=== PATIENT | female | born 1930 | race Two or more races ===

== ENCOUNTER → 2016-09-24 | Outpatient (CLI) | payer MEDICARE, MEDICAID ==
[~2016-09-24] MED LIST: ASPI81CH49; CAR3125T; CYCL5TAB89; DOCU-94; ENAL2.5T; GLYB1.257; METF-312; NITRSPR10; TRAM50TA2
== END | disposition home or self-care (01) ==
LOC: Rad HDHVI 09:54
PROVIDERS: ATTEND Internal Medicine Cardiovascular Disease
DX: M20.41 Other hammer toe(s) (acquired), right foot (principal); M85.88 Other specified disorders of bone density and structure, other site; R07.9 Chest pain, unspecified; E11.9 Type 2 diabetes mellitus without complications; M25.571 Pain in right ankle and joints of right foot; R42 Dizziness and giddiness
CPT/HCPCS: 73610; 73630

== ENCOUNTER → 2016-11-03 | Outpatient (CLI) | payer MEDICARE, MEDICAID | END | disposition home or self-care (01) | LOC: Rad HDHVI 08:56 | PROVIDERS: ATTEND Internal Medicine Cardiovascular Disease | DX: M54.5 Low back pain (principal) | CPT/HCPCS: 72131 ==